=== PATIENT | male | born 1940 | race Caucasian/White ===

== ENCOUNTER → 2023-08-04 10:00 | Outpatient (REF) | payer OTHER, SELFPAY | LOC: DHCBS MAIN 10:00 | PROVIDERS: ATTENDING PHYSICIAN Internal Medicine Cardiovascular Disease; FAMILY PHYSICIAN Family Medicine | DX: I50.22 Chronic systolic (congestive) heart failure (principal); I25.10 Atherosclerotic heart disease of native coronary artery without angina pectoris | CPT/HCPCS: 93306 ==

== ENCOUNTER 2024-08-24 07:45 | Day surgery (SDC) | payer OTHER, SELFPAY ==
[2024-08-24] VITALS (8 sets, daily range): BP systolic 111–170; BP diastolic 66–101; BMI 26.8
--- NOTE | 2024-08-24 08:21 | W.ICD.CONTRA ---
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
-
History of MN?: No
LV Function
Left ventricular function study result?: Ejection Fraction >/= 40%
ACEI/ARB/ARNI
Patient already on ACEI/ARB/ARNI: No
ACEI/ARB/ARNI Contraindication: Hypotension
ACEI/ARB/ARNI Not Indicated: Left Ventricular EF >/= 40%
Beta-Aidee
Patient already on Beta Aidee: No
Beta Aidee Not Indicated: Left Ventricular EF >/= 40% (Intolerant of Beta aidee)
[2024-08-24 08:52] LABS: Glucose - Point of Care 139 mg/dl (70-99)
--- NOTE | 2024-08-24 12:37 | ITS.CL.ICD ---
[facility] - ICD
Implantable Cardioverter Defibrillator
Procedure Report:
ICD GENERATOR CHANGE REPORT
Date of Procedure: August 24, 2024
Primary Care Provider: Dr. Jet Gurrola
Primary bun machine operator: Dr. Sandeep Vaughn
PROCEDURES:
1. Removal of multichamber/[employer] ICD generator and implantation of new multichamber/[employer] defibrillator.
HISTORY:
ICD at battery depletion/replacement indices
NYHA class 2
Duration of HF 9 years despite best attempt at guideline directed medical therapy at maximally tolerated doses
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
LBBB, QRS duration 150 ms ([place]) with cardiac resynchronization providing reduced QRS duration
Initial indication is primary prevention
life expectancy > 1 year
'Time-out' was called and confirmed. The patient was prepped and draped in sterile fashion. Lidocaine with epi was used for local anesthesia. An incision was made along the previous incision and the device and leads were carefully dissected from
the pocket. Hemostasis was obtained with electrocautery. The leads were from the device header and tested using an external analyzer. The pocket was liberally irrigated with antibiotic solution. Once testing (see below) showed adequate
and stable function, the leads were connected to the generator header and the leads and generator were placed within the pocket. The pocket was closed in the typical fashion. Antibiotic pouch placed.
EXISTING ICD Medtronic [id number] SN [id number]
IMPLANTED ICD: MEDTRONIC [id number], serial number [id number]
EXISTING LEADS:
RA Medtronic 5076, SN [id number] [id number]
RV Medtronic 6935M, SN [id number]
LV Medtronic 4298, SN [id number]
DEVICE TESTING:
Sensing: RA 2 mV, RV 10.5 mV,
Capture: RA 0.75 V@ 0.4 ms, RV 1 V@ 0.4 ms, LV 0.7 V@ 0.4 ms,
Ohms: RA 360, RV 490, LV 475
FINAL PROGRAMMING:
Everardo Pacing: DDD 50-130 ppm
Tachy parameters:
VF: 188 bpm, ATP while charging, Shock
CONCLUSIONS:
1. Explant of ICD at [employer]ive Replacement Indices
2. Successful implant ICD generator.
3. Normal function of ICD and leads at implant testing.
RECOMMENDATIONS:
1. Observation and consideration for discharge home later today.
2. In-Office wound check in 7 - 10 days.
Copy to:
Dr. Jet Gurrola
Dr. Sandeep Vaughn
== END 2024-08-24 13:15 | disposition home or self-care (01) ==
LOC: CATH 07:45
PROVIDERS: ATTENDING PHYSICIAN Internal Medicine Cardiovascular Disease; FAMILY PHYSICIAN Family Medicine; OTHER PHYSICIAN Internal Medicine Cardiovascular Disease
DX: Z45.02 Encounter for adjustment and management of automatic implantable cardiac defibrillator (principal); I11.0 Hypertensive heart disease with heart failure; E11.9 Type 2 diabetes mellitus without complications; I44.7 Left bundle-branch block, unspecified; Z79.4 Long term (current) use of insulin; Z79.899 Other long term (current) drug therapy; I50.9 Heart failure, unspecified; I42.8 Other cardiomyopathies
CPT/HCPCS: 33264; 82962; C1882

== ENCOUNTER → 2025-01-13 09:21 | Outpatient (REF) | payer OTHER, SELFPAY | LOC: HWRAD 09:21 | PROVIDERS: ATTENDING PHYSICIAN Internal Medicine Gastroenterology; FAMILY PHYSICIAN Family Medicine | DX: R76.8 Other specified abnormal immunological findings in serum (principal) | CPT/HCPCS: 76700 ==